=== PATIENT | male | born 2000 | race Caucasian/White ===

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

== ENCOUNTER 2021-02-22 16:17 | Emergency (ER) | payer OTHER, MEDICAID, SELFPAY ==
[2019-08-17 05:01] VITALS: BMI 23.8
[2021-02-22 16:30] VITALS: BP 141/69; PULSE 65; RESP 16; TEMP 36.6; O2SAT 97; BMI 14.6
[2021-02-22 17:17] LABS: COVID19 -Nasal RAPID POSITIVE (Negative)
--- NOTE | 2021-02-22 18:22 | ED.URI ---
HPI - URI/Sore Throat <Shayne Velez PA-C - Last Filed: 02/22/21 18:25> General Chief Complaint: Fever Stated Complaint: covid test, symptoms Time Seen by Provider: 02/22/21 17:42 Source: patient Mode of arrival: Ambulatory Limitations: no limitations History of Present Illness HPI Narrative: Keegan presents today with chief complaint of sore throat, mild muscle aches fatigue that started 3 days ago. He reports that his was diagnosed with COVID 4 days ago. His symptoms have largely resolved at this time. He denies any significant fever, chest pain, shortness of breath, abdominal pain, nausea, vomiting or any other acute concerns or complaints. He is otherwise healthy and has no known significant past medical problems. Related Data Home Medications Medication Instructions Recorded Confirmed No Known Home Medications 08/17/19 08/17/19 Previous Rx's Medication Instructions Recorded oxycodone 5 mg capsule 5 mg PO Q6H PRN #20 cap 08/17/19 oxycodone-acetaminophen 5 mg-325 1 tab PO Q6H PRN #14 tab 08/23/19 mg tablet (Percocet) Allergies Allergy/AdvReac Type Severity Reaction Status Date / Time No Known Drug Allergies Allergy Verified 08/17/19 18:30 Review of Systems <Shayne Velez PA-C - Last Filed: 02/22/21 18:25> Review of Systems Narrative: As per HPI Patient History <Shayne Velez PA-C - Last Filed: 02/22/21 18:25> Social History household members: significant other and friend(s) Smoking Status: Never smoker alcohol intake: current Smoking Status: Never smoker alcohol intake frequency: a few times a week Alcohol type: beer Substance Use Type: marijuana Exam <Shayne Velez PA-C - Last Filed: 02/22/21 18:25> Narrative Exam Narrative: Exam Narrative: Const General: cooperative, healthy appearing, comfortable, no acute distress, well developed and well groomed Nutritional Appearance: average body habitus Orientation: alert and oriented x3 HENMT Head: normal to inspection and atraumatic Ears: hearing grossly normal bilaterally Nose: external nose normal and nares normal Face and sinus: normal facial exam Neck Neck: normal visual inspection and supple Resp Effort & Inspection: normal respiratory effort, able to speak in complete sentences, no audible wheezes, not labored, no nasal flaring and no respiratory distress Neuro General: alert, oriented x3, gait normal, tone normal and moves all extremities Cognition: normal cognition Speech: speech normal Gait: normal gait Psych Appearance: grossly normal and well kempt Mental Status: mental status grossly normal Speech and Movement: speech and movement normal Mood: congruent mood Affect: normal affect Initial Vital Signs Initial Vital Signs: Vital Signs Temperature 98 F 02/22/21 16:30 Pulse Rate 65 02/22/21 16:30 Respiratory Rate 16 02/22/21 16:30 Blood Pressure 141/69 H 02/22/21 16:30 Pulse Oximetry 97 02/22/21 16:30 <DO Inder Salvador Last Filed: 02/23/21 00:11> Initial Vital Signs Initial Vital Signs: Vital Signs Temperature 98 F 02/22/21 16:30 Pulse Rate 65 02/22/21 16:30 Respiratory Rate 16 02/22/21 16:30 Blood Pressure 141/69 H 02/22/21 16:30 Pulse Oximetry 97 02/22/21 16:30 Course <Shayne Velez PA-C - Last Filed: 02/22/21 18:25> Orders Ordered: ED Orders 02/22/21 16:55 COVID19 -Nasal swab/Pre-Proc Stat Vital Signs Vital signs: Vital Signs - 8 hr 02/22/21 16:30 02/22/21 18:41 Temperature 98 F 98.1 F Pulse Rate 65 57 L Respiratory Rate 16 16 Blood Pressure 141/69 H 118/79 Pulse Oximetry 97 99 <DO Inder Salvador Last Filed: 02/23/21 00:11> Orders Ordered: ED Orders 02/22/21 16:55 COVID19 -Nasal swab/Pre-Proc Stat Vital Signs Vital signs: Vital Signs - 8 hr 02/22/21 16:30 02/22/21 18:41 Temperature 98 F 98.1 F Pulse Rate 65 57 L Respiratory Rate 16 16 Blood Pressure 141/69 H 118/79 Pulse Oximetry 97 99 MDM - URI/Sore Throat <EMI Diane Last Filed: 02/22/21 18:25> Lab Data Labs: Lab Results 02/22/21 Range/Units 16:55 SARS-CoV-2 (PCR) Positive H (Negative) MDM Narrative Medical decision making narrative: Patient test positive for COVID. He appears to have minimal symptoms at this time and his symptoms seem to be improving. Recommend continued symptomatic management and home isolation. Return precautions discussed. Patient verbalizes understanding and agrees to plan and has no further concerns at this time. Thank you A [id number] system was used with the dictation of this note. Please disregard any spelling or grammatical errors. <Renee Rosales DO - Last Filed: 02/23/21 00:11> Lab Data Labs: Lab Results 02/22/21 Range/Units 16:55 SARS-CoV-2 (PCR) Positive H (Negative) Discharge Plan Departure Patient Disposition: Home Clinical Impression: COVID-19 Activity Restrictions/Additional Instructions: It was nice to meet you this afternoon. Please continue to use [id number] therapies as needed for symptomatic management. Return if you experience any significant worsening symptoms. Thank you Shayne Velez PA-C Prescriptions: No Action No Known Home Medications RF: 0 oxycodone 5 mg capsule 5 mg PO Q6H PRN (Reason: pain) Qty: 20 RF: 0 oxycodone-acetaminophen [Percocet] 5-325 mg tablet 1 tab PO Q6H PRN (Reason: pain) Qty: 14 RF: 0 Referrals: Jj Mitchell MD [Primary Care Provider] - <Renee Rosales DO - Last Filed: 02/23/21 00:11> Sign Out Provider Sign Out Attestation: I was immediately available in the department for consultation. Documentation has been reviewed. I agree with assessment and plan.
[2021-02-22 18:41] VITALS: BP 118/79; PULSE 57; RESP 16; TEMP 36.7; O2SAT 99
== END 2021-02-22 18:42 | disposition home or self-care (01) ==
PROVIDERS: Emergency Medicine; Emergency Provider Physician Assistant; Family Provider Family Medicine; PCP Family Medicine
DX: U07.1 COVID-19 (principal)
CPT/HCPCS: 87635; 99281; 99282; C9803

== ENCOUNTER 2022-02-26 21:08 | Emergency (ER) | payer OTHER, MEDICAID, SELFPAY ==
[2019-08-17 05:01] VITALS: BMI 23.8
[2022-02-26 21:33] VITALS: BP 116/57; PULSE 69; RESP 17; TEMP 36.7; O2SAT 98; BMI 23.7
== END 2022-02-26 21:44 | disposition left against medical advice (07) ==
PROVIDERS: Emergency Provider Emergency Medicine; Family Provider Family Medicine; PCP Family Medicine
CPT/HCPCS: 99281

== ENCOUNTER 2022-08-22 03:12 | Emergency (ER) | payer OTHER, MEDICAID, SELFPAY ==
[2022-04-06 12:44] VITALS: BMI 23.8
[2022-08-22 03:19] VITALS: BP 123/73; PULSE 97; RESP 20; TEMP 37.6; O2SAT 97; BMI 22.5
[2022-08-22] MEDS: ONDANSETRON 4 MG ODT SL (03:30)
[2022-08-22 04:14] LABS: Influenza A - CEPHEID Flu A NEGATIVE (NEGATIVE); Influenza B - CEPHEID Flu B NEGATIVE (NEGATIVE); Respiratory Syncytial Virus Negative (Negative)
[2022-08-22 04:25] LABS: COVID-19 CEPHEID 4-PLEX PCR Negative (Negative)
--- NOTE | 2022-08-22 04:55 | ED.NAVMDI ---
HPI - Nausea/Vomiting/Diarrhea General Chief complaint: Nausea/Vomiting/Diarrhea Stated complaint: cant keep anything down, possible food poisoning Time Seen by Provider: 08/22/22 04:03 Source: patient Mode of arrival: Ambulatory Limitations: no limitations History of Present Illness HPI Narrative: Patient is a 22-year-old male who is here for evaluation of approximately 6 hours of nausea vomiting and diarrhea. No one else in the family is having any symptoms. He is having some abdominal tenderness but this is related to the vomiting and the diarrhea. No recent travel. No recent antibiotics. Has not tried anything for his symptoms prior to arrival. Related Data Home Medications Medication Instructions Recorded Confirmed No Known Home Medications 08/17/19 08/17/19 Previous Rx's Medication Instructions Recorded oxycodone 5 mg capsule 5 mg PO Q6H PRN pain #20 caps 08/17/19 oxycodone-acetaminophen 5 mg-325 1 tab PO Q6H PRN pain #14 tabs 08/23/19 mg tablet (Percocet) Allergies Allergy/AdvReac Type Severity Reaction Status Date / Time No Known Drug Allergies Allergy Verified 08/22/22 03:30 Review of Systems Constitutional Constitutional: Reports system reviewed and no additional complaints, except as documented Gastrointestinal Gastrointestinal: Reports system reviewed and no additional complaints, except as documented Integumentary/Breasts Skin/Breast: Reports system reviewed and no additional complaints, except as documented Patient History Social History household members: significant other and friend(s) Smoking Status: Never smoker alcohol intake: current Smoking Status: Never smoker alcohol intake frequency: a few times a week Alcohol type: beer Substance Use Type: marijuana Exam Initial Vital Signs Initial Vital Signs: Vital Signs Temperature 99.7 F H 08/22/22 03:19 Pulse Rate 97 H 08/22/22 03:19 Respiratory Rate 20 08/22/22 03:19 Blood Pressure 123/73 08/22/22 03:19 Pulse Oximetry 97 08/22/22 03:19 Oxygen Delivery Method 08/22/22 03:19 Resp Effort & Inspection: normal respiratory effort Auscultation: clear to auscultation bilaterally Cardio Rate: regular rate Rhythm: regular rhythm GI Inspection: normal to inspection Palpation: soft, No firm and No guarding Skin General: no rashes or lesions noted Course Orders Ordered: ED Orders 08/22/22 03:28 Covid-19 + FLU A/B + RSV - PCR Stat Ondansetron HCl (Ondansetron 4 Mg/2 Ml Inj) 4 mg IV NOW PRN PRN Reason: Nausea And Vomiting Ondansetron HCl (Ondansetron 4 Mg Odt) 4 mg SL NOW PRN PRN Reason: Nausea And Vomiting Last Admin: 08/22/22 03:30 Dose: 4 mg Documented By: OW Vital Signs Vital signs: Vital Signs - 8 hr 08/22/22 03:19 Temperature 99.7 F H Pulse Rate 97 H Respiratory Rate 20 Blood Pressure 123/73 Pulse Oximetry 97 Oxygen Delivery Method Room Air MDM - Nausea/Vomiting/Diarrhea Lab Data Attestation: I reviewed the patient's lab results. Labs: Lab Results 08/22/22 Range/Units 03:28 SARS-CoV-2 (PCR) Negative (Negative) Influenza A (RT-PCR) Flu a negative (NEGATIVE) Influenza B (RT-PCR) Flu b negative (NEGATIVE) RSV (PCR) Negative (Negative) MDM Narrative Medical decision making narrative: Well-appearing, vital signs unremarkable, benign exam, after Zofran patient was able to tolerate oral intake. Has not vomited nor had any loose bowel movements here in the ER. Given his presentation in his exam and his improvement of symptoms we will hold on any labs or radiologic studies for now. Will send home with prescription for Zofran. He was given return precautions. He expressed understanding and agreement. Discharge Plan Departure Patient Disposition: Home Clinical Impression: Nausea vomiting and diarrhea Instructions: Diarrhea, Nausea and Vomiting-Adult Activity Restrictions/Additional Instructions: I recommend that he is the nausea medication as directed. Be sure that your increasing your fluid intake by drinking small amounts over longer periods of time. I suspect that your symptoms will improve within the next several hours or day. Return to the emergency department for new or worsening symptoms. Prescriptions: No Action No Known Home Medications oxycodone 5 mg capsule 5 mg PO Q6H PRN (Reason: pain) Qty: 20 0RF oxycodone-acetaminophen [Percocet] 5-325 mg tablet 1 tab PO Q6H PRN (Reason: pain) Qty: 14 0RF Referrals: Jj Mitchell MD [Primary Care Provider] - Stand Alone Forms: Patient Portal/API
[2022-08-22] MEDS: ONDANSETRON 4 MG ODT PREPACK 1 BOTTLE MISC (06:16)
[2022-08-22 06:20] VITALS: BP 125/74; PULSE 86; RESP 20; TEMP 36.6; O2SAT 100
== END 2022-08-22 06:25 | disposition home or self-care (01) ==
PROVIDERS: Emergency Provider Emergency Medicine; Family Provider Family Medicine; PCP Family Medicine
DX: R11.2 Nausea with vomiting, unspecified (principal); R19.7 Diarrhea, unspecified; Z20.822 Contact with and (suspected) exposure to COVID-19
CPT/HCPCS: 0241U; 99283

== ENCOUNTER 2024-01-21 10:07 | Emergency (ER) | payer SELFPAY ==
[2022-04-06 12:44] VITALS: BMI 23.8
[2024-01-21 10:36] VITALS: BP 126/59; PULSE 66; RESP 15; TEMP 36.7; O2SAT 97; BMI 24.9
--- NOTE | 2024-01-21 10:42 | DI.RAD.S_ITS ---
PROCEDURE: XR CHEST 1V INDICATIONS: chest pain TECHNIQUE: One view of the chest was acquired. COMPARISON: None. FINDINGS: Surgical changes and devices: None. Lungs and pleura: Lungs are clear. No pleural effusions or pneumothorax. Mediastinum: Mediastinal contours appear normal. Heart size is normal. Bones and chest wall: No suspicious bony lesions. Overlying soft tissues appear unremarkable. IMPRESSION: No acute cardiopulmonary abnormality is seen. Dictated by: Jyoti Harrell MD, PhD on 01/21/2024 at 11:38 Approved by: Jyoti Harrell MD, PhD on 01/21/2024 at 11:38
--- NOTE | 2024-01-21 10:49 | EKG_ITS ---
[place] [id number] [address] [place] [id number] Test Date: 2024-01-21 Pat Name: Keegan Gómez Department: [facility] Room: Gender: Male [employer]: LUIS ALFREDO : 2000 Requested By: Order Number: [id number] Reading MD: Fer Melara Measurements Intervals [place] Rate: 52 P: 52 MN: 148 QRS: -3 QRSD: 108 T: 59 QT: 412 QTc: 383 Interpretive Statements Sinus bradycardia with sinus arrhythmia Incomplete right bundle branch block Electronically Signed On 01-23-2024 7:36:32 PDT by Fer Melara
[2024-01-21 11:00] LABS: Add Manual Diff / Slide Review NO; Basophils Absolute Auto 0 /uL (0-100); Basophils Percent Auto 0.3 % (0-2); Eosinophils Absolute Auto 200 /uL (0-450); Eosinophils Percent Auto 3.6 % (2-4); Hematocrit 41.4 % (41-53); Hemoglobin 13.9 g/dL (13.5-17.5); Lymphocytes Absolute Auto 1700 /uL (1100-4500); Lymphocytes Percent Auto 40.4 % (25-40); Mean Corpuscular HGB Conc 33.6 % (30-36); Mean Corpuscular Volume 89.3 fL (80-100); Monocytes Absolute Auto 400 /uL (0-900); Neutrophils Absolute Auto 2000 /uL (1500-7000); Neutrophils Percent Auto 46.7 % (50-75); Platelet Count 173 X10^3/uL (150-400); Red Blood Cell Count 4.63 X10^6/uL (4.5-5.9); Red Cell Distribution Width 12.9 % (11.6-14.8); White Blood Cell Count 4.3 X10^3/uL (4.5-11.0)
[2024-01-21 11:12] LABS: INR 1.1 (0.9-1.3); Prothrombin Time 12.3 SECONDS (9.4-12.5)
[2024-01-21 11:15] LABS: PTT Partial Thromboplastin Tim 38 SECONDS (25.1-36.5)
[2024-01-21 11:16] LABS: Alanine Aminotransferase 18 IU/L (<50); Albumin 4.5 g/dL (3.5-5.0); Albumin Globulin Ratio 1.6 (1.0-2.8); Alkaline Phosphatase 64 U/L (38-126); Aspartate Aminotransferase 22 IU/L (17-59); BUN Creatinine Ratio 14.1 (6-22); Bilirubin Total 0.7 mg/dL (0.2-1.3); Blood Urea Nitrogen 14 mg/dL (9-20); Calcium 8.9 mg/dL (8.4-10.2); Carbon Dioxide 28 mmol/L (22-32); Chloride 104 mmol/L (98-107); Creatine Kinase 87 U/L (55-170); Estimated Glomerular Filt Rate > 60 mL/min (>60); Globulin 2.8 g/dL (1.7-4.1); Glucose 107 mg/dL (70-100); HEMOLYSIS < 15 (0-50); Lipase 51 U/L (23-300); Magnesium 1.9 mg/dL (1.6-2.3); Potassium 4.2 mmol/L (3.4-5.1); Sodium 140 mmol/L (137-145); Total Protein 7.3 g/dL (6.3-8.2)
[2024-01-21 11:28] LABS: NT-proBNP (BNP-Adult 18+) 65 pg/mL (<125); Troponin I < 0.012 ng/mL (0.01-0.034)
--- NOTE | 2024-01-21 12:09 | ED_ITS ---
HPI - Syncope <Sylvia Salas PA-C - Last Filed: 01/21/24 19:10> General Chief Complaint: Syncope Stated Complaint: blacked out poss seizure Time Seen by Provider: 01/21/24 11:28 Source: patient Mode of arrival: Ambulatory Limitations: no limitations History of Present Illness HPI narrative: 23-year-old male with no reported past medical history presents to the ED status post a syncopal episode that occurred early this morning. Patient states that he smoked marijuana like he usually does daily an hour before he went to bed in their bedroom at about 11:00 p.m. last night. Patient states that he awoke at about 4:00 a.m. on a pile of clothes in the bedroom, he felt nauseous and stiff all over, however managed to get back into bed and fell asleep very quickly. This morning, patient states he slept through his alarm which was set to go to work at 6:00 a.m. he slept in until 9:00 a.m. when his woke him up reminding him that he was late for work. Patient reports feeling tired, achy all over at the time. Patient reports that his wanted him to come in today since she is concerned that he might be experiencing seizures. Patient's father has recently been diagnosed with a seizure disorder and there is some concern about a genetic component to this. Patient states that this is the 1st time he remembers but his remembers 2 other similar episodes with the patient might have syncopized or seized. Patient denies fever, chills, rhinorrhea, cough, sore throat, chest pain, shortness of breath, vomiting, abdominal pain, dysuria, lightheadedness. Related Data Home Medications Medication Instructions Recorded Confirmed No Known Home Medications 08/17/19 07/08/23 Previous Rx's Medication Instructions Recorded oxycodone 5 mg capsule 5 mg PO Q6H PRN pain #20 caps 08/17/19 oxycodone-acetaminophen 5 mg-325 1 tab PO Q6H PRN pain #14 tabs 08/23/19 mg tablet (Percocet) Allergies Allergy/AdvReac Type Severity Reaction Status Date / Time No Known Drug Allergies Allergy Verified 01/21/24 10:36 Review of Systems <Sylvia Salas PA-C - Last Filed: 01/21/24 19:10> Constitutional Constitutional: Reports body ache(s), Denies chills, Reports fatigue, Denies fever(s), Denies frequent falls, Denies lethargy and Denies weakness Eyes Eyes: Denies change in vision, Denies eye discharge, Denies irritation and Denies loss of vision ENT Ears, Nose, Mouth, and Throat: Denies change in voice, Denies dizziness, Denies neck pain, Denies sore throat and Denies throat swelling Cardiovascular Cardiovascular: Denies chest pain, Reports syncope, Denies irregular heart rhythm, Denies lightheadedness, Denies palpitations, Denies dyspnea, Denies dyspnea on exertion and Denies orthopnea Respiratory Respiratory: Denies cough, Denies dyspnea, Denies dyspnea on exertion and Denies wheezing Gastrointestinal Gastrointestinal: Denies abdominal pain, Denies change in bowel habits, Denies diarrhea, Reports nausea and Denies vomiting Musculoskeletal Musculoskeletal: Denies neck pain and Denies numbness Integumentary/Breasts Skin/Breast: Denies pruritus, Denies erythema, Denies rash and Denies wounds Neurologic Neurologic: Denies behavioral changes, Denies confusion, Denies dizziness, Reports syncope, Denies frequent falls, Denies loss of vision, Denies numbness and Denies weakness Psychiatric Psychiatric: Denies anxiety, Denies behavioral changes, Denies confusion, Denies depression, Denies homicidal ideation and Denies suicidal ideation Endocrine Endocrine: Reports fatigue, Denies flushing and Denies palpitations Hematologic/Lymphatic Hematologic/Lymphatic: Denies easy bruising Allergic/Immunologic Allergic/Immunologic: Denies urticaria, Denies throat swelling and Denies wheezing Patient History <Sylvia Salas PA-C - Last Filed: 01/21/24 19:10> Surgical History Anesthesia History of elbow surgery (~08/2019) Family History Father Heart aneurysm Depression History of bipolar disorder Seizures History of heart disease Mental health problem Sister Diabetes mellitus Mental health problem Social History household members: significant other and friend(s) Smoking Status: Never smoker alcohol intake: current Smoking Status: Never smoker alcohol intake frequency: 0-2 drinks per day Alcohol type: beer Substance Use Type: marijuana Exam <Sylvia Salas PA-C - Last Filed: 01/21/24 19:10> Narrative Exam Narrative: Const General:?cooperative, healthy appearing and comfortable HENME Head:?normal to inspection Ears:?hearing grossly normal bilaterally Nose:?external nose normal Face and sinus:?normal facial exam and sinuses nontender Mouth:?oral mucosae normal Throat:?posterior oropharynx normal Eyes General:?appearance normal, both eyes and all related structures Neck Neck:?normal visual inspection and no lymphadenopathy noted Resp Effort & Inspection:?normal respiratory effort Auscultation:?clear to auscultation bilaterally Cardio Rate:?regular rate Rhythm:?regular rhythm Neuro General:?patient alert, patient awake and patient oriented x3; PERLLA; CN 1-12 intact bilaterally; gait normal Initial Vital Signs Initial Vital Signs: Vital Signs Temperature 98.0 F 01/21/24 10:36 Pulse Rate 66 01/21/24 10:36 Respiratory Rate 15 01/21/24 10:36 Blood Pressure 126/59 L 01/21/24 10:36 Pulse Oximetry 97 01/21/24 10:36 Oxygen Delivery Method Room Air 01/21/24 10:36 <Jordyn Dietz MD - Last Filed: 01/22/24 06:51> Initial Vital Signs Initial Vital Signs: Vital Signs Temperature 98.0 F 01/21/24 10:36 Pulse Rate 66 01/21/24 10:36 Respiratory Rate 15 01/21/24 10:36 Blood Pressure 126/59 L 01/21/24 10:36 Pulse Oximetry 97 01/21/24 10:36 Oxygen Delivery Method Room Air 01/21/24 10:36 Course <Sylvia Salas PA-C - Last Filed: 01/21/24 19:10> Orders Ordered: ED Orders 01/21/24 10:42 XR chest 1V Stat EKG-12 Lead Stat 01/21/24 10:53 Complete Blood Count AUTO DIFF Stat Comprehensive Metabolic Panel Stat Ethanol (ETOH) Stat Lipase Stat Magnesium Stat NT-proBNP (BNP-Adult 18+) Stat PTT Partial Thromboplastin Wade Stat Prolactin Stat Prothrombin Time INR Stat Troponin & CK Cardiac Panel Stat 01/21/24 12:24 Urinalysis and Microscopic Stat urine tox [Urine Drug Screen, Rapid] Stat 01/21/24 12:26 CT head/brain wo con Stat Vital Signs Vital signs: Vital Signs - 8 hr 01/21/24 13:17 01/21/24 14:11 Temperature 98.0 F Pulse Rate 60 61 Respiratory Rate 20 16 Blood Pressure 116/74 119/61 Pulse Oximetry 100 100 Oxygen Delivery Method Room Air Room Air <Jordyn Dietz MD - Last Filed: 01/22/24 06:51> Orders Ordered: ED Orders 01/21/24 10:42 XR chest 1V Stat EKG-12 Lead Stat 01/21/24 10:53 Complete Blood Count AUTO DIFF Stat Comprehensive Metabolic Panel Stat Ethanol (ETOH) Stat Lipase Stat Magnesium Stat NT-proBNP (BNP-Adult 18+) Stat PTT Partial Thromboplastin Wade Stat Prolactin Stat Prothrombin Time INR Stat Troponin & CK Cardiac Panel Stat 01/21/24 12:24 Urinalysis and Microscopic Stat urine tox [Urine Drug Screen, Rapid] Stat 01/21/24 12:26 CT head/brain wo con Stat Vital Signs Vital signs: Vital Signs - 8 hr 01/21/24 13:17 01/21/24 14:11 Temperature 98.0 F Pulse Rate 60 61 Respiratory Rate 20 16 Blood Pressure 116/74 119/61 Pulse Oximetry 100 100 Oxygen Delivery Method Room Air Room Air MDM - Syncope <Sylvia Salas PA-C - Last Filed: 01/21/24 19:10> Lab Data 01/21/24 10:53 01/21/24 10:53 Labs: Lab Results 01/21/24 01/21/24 01/21/24 Range/Units 10:53 12:24 12:24 WBC 4.3 L (4.5-11.0) X10^3/uL RBC 4.63 (4.5-5.9) X10^6/uL Hgb 13.9 (13.5-17.5) g/dL Hct 41.4 (41-53) % MCV 89.3 (80-100) fL MCH 30.0 (26-34) PG MCHC 33.6 (30-36) % RDW 12.9 (11.6-14.8) % Plt Count 173 (150-400) X10^3/uL Neut % (Auto) 46.7 L (50-75) % Lymph % (Auto) 40.4 H (25-40) % Tyler % (Auto) 9.0 (3-14) % Eos % (Auto) 3.6 (2-4) % Baso % (Auto) 0.3 (0-2) % Neut # (Auto) 2000 (0483-3261) /uL Lymph # (Auto) 1700 (1451-6308) /uL Tyler # (Auto) 400 (0-900) /uL Eos # (Auto) 200 (0-450) /uL Baso # (Auto) 0 (0-100) /uL PT 12.3 (9.4-12.5) SECONDS INR 1.1 (0.9-1.3) APTT 38 H (25.1-36.5) SECONDS Sodium 140 (137-145) mmol/L Potassium 4.2 (3.4-5.1) mmol/L Chloride 104 (98-107) mmol/L Carbon Dioxide 28 (22-32) mmol/L BUN 14 (9-20) mg/dL Creatinine 0.99 (0.66-1.25) mg/dL Estimated GFR > 60 (>60) mL/min BUN/Creatinine Ratio 14.1 (6-22) Glucose 107 H (70-100) mg/dL Calcium 8.9 (8.4-10.2) mg/dL Magnesium 1.9 (1.6-2.3) mg/dL Total Bilirubin 0.7 (0.2-1.3) mg/dL AST 22 (17-59) IU/L ALT 18 (<50) IU/L Alkaline Phosphatase 64 (38-126) U/L Total Creatine Kinase 87 (55-170) U/L Troponin I < 0.012 (0.01-0.034) ng/mL NT-Pro-B Natriuret Pep 65 (<125) pg/mL Total Protein 7.3 (6.3-8.2) g/dL Albumin 4.5 (3.5-5.0) g/dL Globulin 2.8 (1.7-4.1) g/dL Albumin/Globulin Ratio 1.6 (1.0-2.8) Lipase 51 (23-300) U/L Prolactin 16.9 (3.7-17.9) ng/mL Urine Color Yellow Urine Appearance Clear Urine pH 7.5 Normal (4.5-8.0) Ur Specific [place] 1.015 (1.000-1.035) Urine Protein Negative (Negative) Urine Glucose (UA) Negative (Negative) g/dL Urine Ketones Negative (NEGATIVE) Urine Occult Blood Negative (Negative) Urine Nitrate Negative (Negative) Urine Bilirubin Negative (NEGATIVE) Urine Urobilinogen 1.0 (0.2) E.U./dL Ur Leukocyte Esterase Negative (NEGATIVE) Urine RBC None seen (0-5/HPF) Urine WBC None seen (0-5/HPF) Ur Squamous Epith Cells 0-1 /hpf (0-5/HPF) Amorphous Sediment 2+ Urine Bacteria None seen (None) Ur Culture Indicated? Cult not indicated Vol Urine Centrifuged 10ml (spun) U Opiates 300ng/mL cut Negative (Negative) Ur Oxycodone Screen Negative (Negative) Urine Methadone Screen Negative (Negative) Ur Barbiturates Screen Negative (Negative) U Tricyclic Antidepress Negative (Negative) Ur Phencyclidine Scrn Negative (Negative) Ur Amphetamines Screen Negative (Negative) U Methamphetamines Scrn Negative (Negative) Ur MDMA Scrn (Ecstasy) Negative (Negative) U Benzodiazepines Scrn Negative (Negative) Urine Cocaine Screen Negative (Negative) U Marijuana (THC) Screen Positive H (Negative) Urine Specific [place] Normal (Normal) Ethyl Alcohol < 10 ( - 10) mg/dL Ur Creatinine Normal (Normal) Point of Care Testing Glucose POC 130 MDM Narrative Medical decision making narrative: 23-year-old male with no reported past medical history presents to the ED status post a syncopal episode that occurred early this morning. Concern for syncope versus seizure versus intoxication versus alcohol withdrawal versus medication withdrawal versus UTI versus other. Will obtain EKG, chest x-ray, labs, troponin, BNP, lactate, prolactin, CT head without contrast, urine tox, UA. Will reassess. Patient's workup was unremarkable. EKG with sinus bradycardia with sinus arrhythmia. Labs within normal limits. UA without UTI. Troponin, BNP within normal limits. Negative prolactin. CT head without acute findings. Urine tox positive for marijuana. Discussed findings with patient. Recommend follow-up with neurology as soon as possible to evaluate for seizures versus other. Recommend cessation of marijuana. ED return precautions discussed with patient. Patient verbalized understanding. Medical records reviewed: Yes <Jordyn Dietz MD - Last Filed: 01/22/24 06:51> Lab Data Labs: Lab Results 01/21/24 01/21/24 01/21/24 Range/Units 10:53 12:24 12:24 WBC 4.3 L (4.5-11.0) X10^3/uL RBC 4.63 (4.5-5.9) X10^6/uL Hgb 13.9 (13.5-17.5) g/dL Hct 41.4 (41-53) % MCV 89.3 (80-100) fL MCH 30.0 (26-34) PG MCHC 33.6 (30-36) % RDW 12.9 (11.6-14.8) % Plt Count 173 (150-400) X10^3/uL Neut % (Auto) 46.7 L (50-75) % Lymph % (Auto) 40.4 H (25-40) % Tyler % (Auto) 9.0 (3-14) % Eos % (Auto) 3.6 (2-4) % Baso % (Auto) 0.3 (0-2) % Neut # (Auto) 2000 (7372-8609) /uL Lymph # (Auto) 1700 (2000-9328) /uL Tyler # (Auto) 400 (0-900) /uL Eos # (Auto) 200 (0-450) /uL Baso # (Auto) 0 (0-100) /uL PT 12.3 (9.4-12.5) SECONDS INR 1.1 (0.9-1.3) APTT 38 H (25.1-36.5) SECONDS Sodium 140 (137-145) mmol/L Potassium 4.2 (3.4-5.1) mmol/L Chloride 104 (98-107) mmol/L Carbon Dioxide 28 (22-32) mmol/L BUN 14 (9-20) mg/dL Creatinine 0.99 (0.66-1.25) mg/dL Estimated GFR > 60 (>60) mL/min BUN/Creatinine Ratio 14.1 (6-22) Glucose 107 H (70-100) mg/dL Calcium 8.9 (8.4-10.2) mg/dL Magnesium 1.9 (1.6-2.3) mg/dL Total Bilirubin 0.7 (0.2-1.3) mg/dL AST 22 (17-59) IU/L ALT 18 (<50) IU/L Alkaline Phosphatase 64 (38-126) U/L Total Creatine Kinase 87 (55-170) U/L Troponin I < 0.012 (0.01-0.034) ng/mL NT-Pro-B Natriuret Pep 65 (<125) pg/mL Total Protein 7.3 (6.3-8.2) g/dL Albumin 4.5 (3.5-5.0) g/dL Globulin 2.8 (1.7-4.1) g/dL Albumin/Globulin Ratio 1.6 (1.0-2.8) Lipase 51 (23-300) U/L Prolactin 16.9 (3.7-17.9) ng/mL Urine Color Yellow Urine Appearance Clear Urine pH 7.5 Normal (4.5-8.0) Ur Specific [place] 1.015 (1.000-1.035) Urine Protein Negative (Negative) Urine Glucose (UA) Negative (Negative) g/dL Urine Ketones Negative (NEGATIVE) Urine Occult Blood Negative (Negative) Urine Nitrate Negative (Negative) Urine Bilirubin Negative (NEGATIVE) Urine Urobilinogen 1.0 (0.2) E.U./dL Ur Leukocyte Esterase Negative (NEGATIVE) Urine RBC None seen (0-5/HPF) Urine WBC None seen (0-5/HPF) Ur Squamous Epith Cells 0-1 /hpf (0-5/HPF) Amorphous Sediment 2+ Urine Bacteria None seen (None) Ur Culture Indicated? Cult not indicated Vol Urine Centrifuged 10ml (spun) U Opiates 300ng/mL cut Negative (Negative) Ur Oxycodone Screen Negative (Negative) Urine Methadone Screen Negative (Negative) Ur Barbiturates Screen Negative (Negative) U Tricyclic Antidepress Negative (Negative) Ur Phencyclidine Scrn Negative (Negative) Ur Amphetamines Screen Negative (Negative) U Methamphetamines Scrn Negative (Negative) Ur MDMA Scrn (Ecstasy) Negative (Negative) U Benzodiazepines Scrn Negative (Negative) Urine Cocaine Screen Negative (Negative) U Marijuana (THC) Screen Positive H (Negative) Urine Specific [place] Normal (Normal) Ethyl Alcohol < 10 ( - 10) mg/dL Ur Creatinine Normal (Normal) Point of Care Testing Glucose POC 130 Discharge Plan Departure Patient Disposition: Home Clinical Impression: Syncope Qualifiers: Syncope type: unspecified Qualified Code(s): R55 - Syncope and collapse Instructions: DI for Syncope in Adults (Fainting) Activity Restrictions/Additional Instructions: You were evaluated in the ED today for an episode of passing out. Your EKG, chest x-ray, labs, CT scan of the brain were normal. It is unclear what the cause of your passing out was. It is also possible that you had a seizure. Please follow-up with your PCP as soon as possible for a referral to Neurology for further evaluation. In the meanwhile, it is recommended that you cut out the marijuana in case that is causing these episodes. Return to the ED if you have worsening symptoms. Prescriptions: No Action No Known Home Medications oxycodone 5 mg capsule 5 mg PO Q6H PRN (Reason: pain) Qty: 20 0RF oxycodone-acetaminophen [Percocet] 5-325 mg tablet 1 tab PO Q6H PRN (Reason: pain) Qty: 14 0RF Referrals: Jj Mitchell MD [Primary Care Provider] - Stand Alone Forms: Patient Portal/API ED Sign-out <Jordyn Dietz MD - Last Filed: 01/22/24 06:51> Cosign ED Attending Cosignature Attestation: I did not see this patient. I was available all times for consultation.
[2024-01-21 12:14] LABS: Ethanol (ETOH) < 10 mg/dL
--- NOTE | 2024-01-21 12:26 | DI.CT.S_ITS ---
PROCEDURE: CT HEAD/BRAIN WO CON INDICATIONS: ?seizure TECHNIQUE: Noncontrast 4.5 mm thick angled axial sections acquired from the foramen magnum to the vertex, with coronal and sagittal reformats. For radiation dose reduction, the following was used: automated exposure control, adjustment of mA and/or kV according to patient size. COMPARISON: [facility], CR, XR CHEST 1V, 01/21/2024, 11:07. FINDINGS: Image quality: Diagnostic. CSF spaces: Basal cisterns are patent. No extra-axial fluid collections. Ventricles are normal in size and shape. Brain: No midline shift. No intracranial masses or hemorrhage. Luna-white matter interface is normal. Skull and face: Calvarium and visualized facial bones are intact, without suspicious lesions. Sinuses: Visualized sinuses and mastoids are clear. IMPRESSION: No acute intracranial hemorrhage is seen. No acute intracranial pathology. To the limits of this noncontrast study, no findings of intracranial masses or mass effect can be seen. Dictated by: Minh Willard M.D. on 01/21/2024 at 12:47 Approved by: Minh Willard M.D. on 01/21/2024 at 12:47
[2024-01-21 12:36] LABS: Prolactin 16.9 ng/mL (3.7-17.9)
[2024-01-21 13:09] LABS: Appearance Urine UA CLEAR; Bilirubin Urine UA NEGATIVE (NEGATIVE); Color Urine UA YELLOW; Glucose Urine UA NEGATIVE (Negative); Ketones Urine UA NEGATIVE (NEGATIVE); Leukocyte Esterase Urine UA NEGATIVE (NEGATIVE); Nitrite Urine UA NEGATIVE (Negative); Occult Blood Urine UA NEGATIVE (Negative); Protein Urine UA NEGATIVE (Negative); Specific Gravity Urine UA 1.015 (1.000-1.035); pH Urine UA 7.5 (4.5-8.0)
[2024-01-21 13:17] VITALS: BP 116/74; PULSE 60; RESP 20; O2SAT 100
[2024-01-21 13:37] LABS: RBC Urine None Seen (0-5/HPF); Urine Volume 10mL (spun); WBC Urine None Seen (0-5/HPF)
[2024-01-21 13:38] LABS: Amorphous Sediment Urine 2+; Bacteria Urine None Seen; Culture Indicated Urine Cult Not Indicated; Squamous Epithelial Cell Urine 0-1 /HPF (0-5/HPF)
[2024-01-21 14:07] LABS: Ur Creatinine Normal (Normal); Ur Specific Gravity Normal (Normal); Urine Tetrahydrocannabinol Positive (Negative); Urine pH Normal (Normal)
[2024-01-21 14:08] LABS: UR Morphine/Opiate cutoff 300 Negative (Negative); Urine Amphetamines Negative (Negative); Urine Barbiturates Negative (Negative); Urine Benzodiazepines Negative (Negative); Urine Cocaine Negative (Negative); Urine MDMA Negative (Negative); Urine Methadone Negative (Negative); Urine Methamphetamines Negative (Negative); Urine Oxycodone Negative (Negative); Urine Phencyclidine Negative (Negative); Urine Tricyclic Antidepressant Negative (Negative)
[2024-01-21 14:11] VITALS: BP 119/61; PULSE 61; RESP 16; TEMP 36.7; O2SAT 100
== END 2024-01-21 14:47 | disposition home or self-care (01) ==
PROVIDERS: Emergency Medicine; Emergency Provider Student in an Organized Health Care Education/Training Program; Family Provider Family Medicine; PCP Family Medicine
DX: R55 Syncope and collapse (principal); F12.90 Cannabis use, unspecified, uncomplicated
CPT/HCPCS: 36415; 70450; 71045; 80053; 80305; 80320; 81001; 82550; 82962; 83690; 83735; 83880; 84146; 84484; 85025; 85610; 85730; 93005; 99282; 99284

== ENCOUNTER 2025-06-22 11:02 | Emergency (ER) | payer OTHER, SELFPAY ==
[2022-04-06 12:44] VITALS: BMI 23.8
--- OUTSIDE RECORDS SUMMARY | 2025-06-22 11:04 | XMS_ITS | Clinical Summary ---
Author Organization [facility] Address [address] [place] [phone] Phone [phone] Care Team Providers Care National Accounts Recruiter Name Role Phone Unavailable Primary Care Provider Unavailabl e Social History Tobacco Use Types Packs/Day Years Used Date Smoking Tobacco: Never Assessed Sex and Gender Information Value Date Recorded Sex Assigned at Not on file Legal Sex Male 7:28 AM PDT Gender Identity Not on file Sexual Orientation Not on file Last Filed Vital Signs Vital Sign Reading Time Taken Comments Blood Pressure 102/74 04/28/2019 10:37 AM PDT Pulse 84 04/28/2019 10:37 AM PDT Temperature 37.2 C (99 F) 04/28/2019 10:37 AM PDT Respiratory Rate - - Oxygen Saturation - - Inhaled Oxygen Concentration - - Weight 91.6 kg (202 lb) 04/28/2019 10:37 AM PDT Height 194.3 cm (6' 4.5) 01/16/2017 3:07 PM PDT Body Mass Index - - Plan of Treatment Health Maintenance Due Date Last Done Comments HIV Screening 2015 HPV Vaccines (2 - Male 3-dose series) 05/22/2017 04/24/2017 Hepatitis C Screening 2018 DTaP/Tdap/Td Vaccines (8 - Td or Tdap) 10/24/2021 10/25/2011, 10/25/2011, 10/25/2005, Additional history exists COVID-19 Vaccine ( - season) 2025 Influenza Vaccine (#1) 2025 04/24/2017 Zoster Vaccines (1 of 2) 2050 02/25/2006 RSV Vaccination aged 60+ and Patients (1 - 1-dose 75+ series) 2075 HIB Vaccines Completed 11/14/2001, 12/31, 2000, Additional history exists IPV Vaccines Completed 10/25/2005, 09/30, 11/14/2001, Additional history exists Hepatitis A Vaccines Aged Out No long er eligible based on patient's age to complete this topic Meningococcal Vaccine Aged Out No karina pavel eligible based on patient's age to complete this topic Pneumococcal Vaccine: Pediatrics (0 to 5 Years) and At-Risk Patients (19 to 50 Years) Aged Out No longer eligible based on patient's age to complete this topic Rotavirus Vaccines Aged Out No longer eligible based on patient's age to complete this topic
[2025-06-22 11:10] VITALS: BP 118/83; PULSE 69; RESP 18; TEMP 36.9; O2SAT 98; BMI 26.1
--- NOTE | 2025-06-22 11:24 | DI.RAD.S_ITS ---
PROCEDURE: XR ABDOMEN MIN 2V INDICATIONS: RUQ pain TECHNIQUE: 2 views of the abdomen were acquired. COMPARISON: None. FINDINGS: Surgical changes and devices: None. Bowel: No pneumoperitoneum. The bowel gas pattern is nonobstructive. Moderate fecal burden scattered throughout the colon. Soft tissues: No masses; visualized solid organ contours appear normal in size. No suspicious abdominal calcifications. Bones: No suspicious bony abnormalities. IMPRESSION: Non-obstructive bowel gas pattern. Moderate fecal burden seen throughout the colon. No acute radiographic abnormality seen. Dictated by: Jared Aguirre M.D. on 06/22/2025 at 12:20 Approved by: Jared Aguirre M.D. on 06/22/2025 at 12:21
--- NOTE | 2025-06-22 11:24 | DI.US.S_ITS ---
PROCEDURE: US ABDOMEN LIMITED INDICATIONS: RUQ pain TECHNIQUE: Real-time scanning was performed of the abdominal and retroperitoneal organs, with image documentation. COMPARISON: None. FINDINGS: Liver: Liver is normal in size and homogeneous in echotexture. Minimally increased hepatic echotexture. There is a subtle 0.8 x 0.8 x 0.8 cm hyperechoic oval lesion in the right hepatic lobe laterally. This is suspected to represent a small hemangioma. Main portal vein is patent with hepatopetal flow. Gallbladder: No gallstones. No wall thickening. No pericholecystic edema. Negative sonographic Calvert's sign. Biliary ducts: Intrahepatic bile ducts are non-dilated. Extrahepatic bile duct caliber measures 4 mm. Normal is 6-7 mm or less in diameter, or 10 mm or less post-cholecystectomy. Pancreas: Pancreas not visualized secondary to overlying bowel gas. Miscellaneous: No free abdominal fluid. IMPRESSION: Abdomen without acute sonographic abnormalities. Findings consistent with mild hepatic steatosis with suspected benign 0.8 cm right hepatic lobe hemangioma. No evidence for cholelithiasis or acute cholecystitis. Dictated by: Jared Aguirre M.D. on 06/22/2025 at 12:22 Approved by: Jared Aguirre M.D. on 06/22/2025 at 12:26
--- NOTE | 2025-06-22 11:26 | ED_ITS ---
HPI - Abdominal Pain <Sylvia Salas PA-C - Last Filed: 06/22/25 17:34> General Chief Complaint: Abdominal Pain Stated Complaint: abd px, more tired than usual Time Seen by Provider: 06/22/25 11:16 Source: patient Mode of arrival: Ambulatory History of Present Illness HPI narrative: 24-year-old male presents to the ED with 2 days of right upper quadrant/lower chest pain. Patient states that he was seeing stars when he tried to lift his little baby. Patient notes mild sore throat, and that his family has had some respiratory symptoms. No fever, chills, shortness of breath, nausea, vomiting, lightheadedness, dizziness, syncope. Last bowel movement was yesterday. Occasional alcohol use. Occasional vaping/smoking. Denies recreational drug use. No trauma, injury reported by the patient. He did say that he was working on the kitchen, however did not lift heavy weights. Related Data Home Medications ?Medication ?Instructions ?Recorded ?Confirmed No Known Home Medications 08/17/1902/21 Previous Rx's ?Medication ?Instructions ?Recorded oxycodone 5 mg capsule 5 mg PO Q6H PRN pain #20 cap s 08/17/19 oxycodone-acetaminophen 5 mg-325 1 tab PO Q6H PRN pain #14 tabs 08/23/19 mg tablet (Percocet) Allergies Allergy/AdvReac Type Severity Reaction Status Date / Time No Known Drug Allergies Allergy Verified 01/21/24 10:36 Review of Systems <Sylvia Salas PA-C - Last Filed: 06/22/25 17:34> Constitutional Constitutional: Denies chills, Denies fatigue, Denies fever(s), Denies frequent falls, Denies lethargy and Denies weakness Eyes Eyes: Denies change in vision, Denies eye discharge, Denies irritation and Denies loss of vision ENT Ears, Nose, Mouth, and Throat: Denies change in voice, Denies dizziness, Denies neck pain, Denies sore throat and Denies throat swelling Cardiovascular Cardiovascular: Reports chest pain (inspirational), Denies irregular heart rhythm, Denies lightheadedness, Denies palpitations, Denies dyspnea, Denies dyspnea on exertion and Denies orthopnea Respiratory Respiratory: Denies cough, Denies dyspnea, Denies dyspnea on exertion and Denies wheezing Gastrointestinal Gastrointestinal: Reports abdominal pain, Denies change in bowel habits, Denies diarrhea, Denies nausea and Denies vomiting Musculoskeletal Musculoskeletal: Denies neck pain and Denies numbness Integumentary/Breasts Skin/Breast: Denies pruritus, Denies erythema, Denies rash and Denies wounds Neurologic Neurologic: Denies behavioral changes, Denies confusion, Denies dizziness, Denies frequent falls, Denies loss of vision, Denies numbness and Denies weakness Psychiatric Psychiatric: Denies anxiety, Denies behavioral changes, Denies confusion, Denies depression, Denies homicidal ideation and Denies suicidal ideation Endocrine Endocrine: Denies fatigue, Denies flushing and Denies palpitations Hematologic/Lymphatic Hematologic/Lymphatic: Denies easy bruising Allergic/Immunologic Allergic/Immunologic: Denies urticaria, Denies throat swelling and Denies wheezing Patient History <Sylvia Salas PA-C - Last Filed: 06/22/25 17:34> Medical History Acne Depression Migraines Headache Surgical History Anesthesia History of elbow surgery (~08/2019) Family History Father Heart aneurysm Depression History of bipolar disorder Seizures History of heart disease Mental health problem Sister Diabetes mellitus Mental health problem Brother Mental health problem Brother Mental health problem Grandmother Cancer Diabetes mellitus Grandfather Cancer Grandmother Cancer Social History household members: significant other and friend(s) Smoking Status: Current some day smoker alcohol intake: current Smoking Status: Current some day smoker tobacco type: cigarettes and vaping alcohol intake frequency: 0-2 drinks per day Alcohol type: beer Exam <Sylvia Salas PA-C - Last Filed: 06/22/25 17:34> Narrative Exam Narrative: Const General:?cooperative, healthy appearing and comfortable [facility] Head:?normal to inspection Ears:?hearing grossly normal bilaterally Nose:?external nose normal Face and sinus:?normal facial exam and sinuses nontender Mouth:?oral mucosae normal Throat:?posterior oropharynx normal Eyes General:?appearance normal, both eyes and all related structures Neck Neck:?normal visual inspection and no lymphadenopathy noted Resp Effort & Inspection:?normal respiratory effort Auscultation:?clear to auscultation bilaterally Cardio Rate:?regular rate Rhythm:?regular rhythm GI Abdomen is soft, nondistended, tender to palpation in the right upper quadrant. Neuro General:?patient alert, patient awake and patient oriented x3 Initial Vital Signs Initial Vital Signs: Vital Signs Temperature 98.4 F 06/22/25 11:10 Pulse Rate 69 06/22/25 11:10 Respiratory Rate 18 06/22/25 11:10 Blood Pressure 118/83 06/22/25 11:10 Pulse Oximetry 98 06/22/25 11:10 Oxygen Delivery Method Room Air 06/22/25 11:10 <Jordyn Anthony DO - Last Filed: 06/23/25 10:01> Initial Vital Signs Initial Vital Signs: Vital Signs Temperature 98.4 F 06/22/25 11:10 Pulse Rate 69 06/22/25 11:10 Respiratory Rate 18 06/22/25 11:10 Blood Pressure 118/83 06/22/25 11:10 Pulse Oximetry 98 06/22/25 11:10 Oxygen Delivery Method Room Air 06/22/25 11:10 Course <Sylvia Salas PA-C - Last Filed: 06/22/25 17:34> Orders Ordered: Discontinued Medications Ketorolac Tromethamine (Ketorolac 30 Mg/Ml Vial) 15 mg IV NOW ONE Stop: 06/22/25 11:24 Last Admin: 06/22/25 11:36 Dose: 15 mg Documented By: MARIAM Ketorolac Tromethamine (Ketorolac 30 Mg/Ml Vial) 15 mg IV NOW ONE Stop: 06/22/25 12:40 Last Admin: 06/22/25 12:42 Dose: Not Given Documented By: TAMMI Vital Signs Vital signs: Vital Signs - 8 hr 06/22/25 11:10 06/22/25 14:57 Temperature 98.4 F 98.6 F Pulse Rate 69 69 Respiratory Rate 18 16 Blood Pressure 118/83 132/68 Pulse Oximetry 98 99 Oxygen Delivery Method Room Air Room Air <Jordyn Anthony DO - Last Filed: 06/23/25 10:01> Orders Ordered: Discontinued Medications Ketorolac Tromethamine (Ketorolac 30 Mg/Ml Vial) 15 mg IV NOW ONE Stop: 06/22/25 11:24 Last Admin: 06/22/25 11:36 Dose: 15 mg Documented By: MARIAM Ketorolac Tromethamine (Ketorolac 30 Mg/Ml Vial) 15 mg IV NOW ONE Stop: 06/22/25 12:40 Last Admin: 06/22/25 12:42 Dose: Not Given Documented By: TAMMI Vital Signs Vital signs: Vital Signs - 8 hr 06/22/25 11:10 06/22/25 14:57 Temperature 98.4 F 98.6 F Pulse Rate 69 69 Respiratory Rate 18 16 Blood Pressure 118/83 132/68 Pulse Oximetry 98 99 Oxygen Delivery Method Room Air Room Air MDM - Abdominal Pain <Sylvia Salas PA-C - Last Filed: 06/22/25 17:34> Lab Data 06/22/25 11:35 06/22/25 11:35 Labs: Lab Results 06/22/25 06/22/25 Range/Units 11:35 12:35 WBC 9.2 (4.5-11.0) X10^3/uL RBC 4.76 (4.5-5.9) X10^6/uL Hgb 14.4 (13.5-17.5) g/dL Hct 41.9 (41-53) % MCV 88.1 (80-100) fL MCH 30.3 (26-34) PG MCHC 34.4 (30-36) % RDW 13.0 (11.6-14.8) % Plt Count 201 (150-400) X10^3/uL Neut % (Auto) 66.3 (50-75) % Lymph % (Auto) 22.6 L (25-40) % [place] % (Auto) 8.9 (3-14) % Eos % (Auto) 1.8 L (2-4) % Baso % (Auto) 0.4 (0-2) % Neut # (Auto) 6100 (6486-3850) /uL Lymph # (Auto) 2100 (9381-6815) /uL [place] # (Auto) 800 (0-900) /uL Eos # (Auto) 200 (0-450) /uL Baso # (Auto) 0 (0-100) /uL D-Dimer 218 (<500) ng/ml Sodium 140 (137-145) mmol/L Potassium 4.4 (3.4-5.1) mmol/L Chloride 105 (98-107) mmol/L Carbon Dioxide 24 (22-32) mmol/L BUN 15 (9-20) mg/dL Creatinine 0.96 (0.66-1.25) mg/dL Estimated GFR > 60 (>60) mL/min BUN/Creatinine Ratio 15.6 (6-22) Glucose 103 H (70-99) mg/dL Calcium 9.2 (8.4-10.2) mg/dL Total Bilirubin 0.6 (0.2-1.3) mg/dL AST 27 (17-59) IU/L ALT 24 (<50) IU/L Alkaline Phosphatase 90 (38-126) U/L Total Creatine Kinase 90 (55-170) U/L Troponin I < 0.012 (0.01-0.034) ng/mL NT-Pro-B Natriuret Pep 27 (<125) pg/mL Total Protein 8.2 (6.3-8.2) g/dL Albumin 4.8 (3.5-5.0) g/dL Globulin 3.4 (1.7-4.1) g/dL Albumin/Globulin Ratio 1.4 (1.0-2.8) Lipase 50 (23-300) U/L MDM Narrative Medical decision making narrative: 24-year-old male presents to the ED with 2 days of right upper quadrant/lower chest pain. Concern for cholecystitis versus pneumonia versus PE versus other cardiopulmonary abnormalities versus other. Will obtain labs, lipase,d-dimer, cardiopulmonary workup, ultrasound abdomen. Will give Toradol for pain. Will reassess. Chest x-ray without a acute cardiopulmonary abnormalities or focal consolidation. Ultrasound abdomen without acute sonographic abnormalities. Findings are consistent with mild hepatic steatosis with suspected benign 0.8 cm right hepatic lobe hemangioma. No evidence for cholelithiasis or acute cholecystitis. Abdominal x-ray shows nonobstructive bowel gas pattern. Moderate fecal burden seen throughout the colon. No acute radiographic abnormality seen. EKG is sinus bradycardia with a ventricular rate of 52, sinus arrhythmia. No acute ST-T changes. Labs within normal limits. Troponin, BNP, D-dimer within normal limits. Patient has a completely unremarkable workup here today. Patient's symptoms improved with the Toradol. Patient's symptoms likely musculoskeletal in etiology. Recommend continuing ibuprofen, Tylenol at home. Recommend follow-up with PCP as soon as possible. ED return precautions were discussed with patient. He verbalized understanding. Medical records reviewed: Yes <Jordyn Anthony, - Last Filed: 06/23/25 10:01> Lab Data Labs: Lab Results 06/22/25 06/22/25 Range/Units 11:35 12:35 WBC 9.2 (4.5-11.0) X10^3/uL RBC 4.76 (4.5-5.9) X10^6/uL Hgb 14.4 (13.5-17.5) g/dL Hct 41.9 (41-53) % MCV 88.1 (80-100) fL MCH 30.3 (26-34) PG MCHC 34.4 (30-36) % RDW 13.0 (11.6-14.8) % Plt Count 201 (150-400) X10^3/uL Neut % (Auto) 66.3 (50-75) % Lymph % (Auto) 22.6 L (25-40) % [place] % (Auto) 8.9 (3-14) % Eos % (Auto) 1.8 L (2-4) % Baso % (Auto) 0.4 (0-2) % Neut # (Auto) 6100 (8988-3957) /uL Lymph # (Auto) 2100 (3696-1708) /uL [place] # (Auto) 800 (0-900) /uL Eos # (Auto) 200 (0-450) /uL Baso # (Auto) 0 (0-100) /uL D-Dimer 218 (<500) ng/ml Sodium 140 (137-145) mmol/L Potassium 4.4 (3.4-5.1) mmol/L Chloride 105 (98-107) mmol/L Carbon Dioxide 24 (22-32) mmol/L BUN 15 (9-20) mg/dL Creatinine 0.96 (0.66-1.25) mg/dL Estimated GFR > 60 (>60) mL/min BUN/Creatinine Ratio 15.6 (6-22) Glucose 103 H (70-99) mg/dL Calcium 9.2 (8.4-10.2) mg/dL Total Bilirubin 0.6 (0.2-1.3) mg/dL AST 27 (17-59) IU/L ALT 24 (<50) IU/L Alkaline Phosphatase 90 (38-126) U/L Total Creatine Kinase 90 (55-170) U/L Troponin I < 0.012 (0.01-0.034) ng/mL NT-Pro-B Natriuret Pep 27 (<125) pg/mL Total Protein 8.2 (6.3-8.2) g/dL Albumin 4.8 (3.5-5.0) g/dL Globulin 3.4 (1.7-4.1) g/dL Albumin/Globulin Ratio 1.4 (1.0-2.8) Lipase 50 (23-300) U/L Discharge Plan Departure Patient Disposition: Home Clinical Impression: Abdominal pain Qualifiers: Abdominal location: right upper quadrant Qualified Code(s): R10.11 - Right upper quadrant pain Instructions: DI for Abdominal Pain-Adult Activity Restrictions/Additional Instructions: You were evaluated in the emergency department today for abdominal pain. Your workup was normal today. Your symptoms seem to have improved with Toradol. It appears that your symptoms are likely due to a musculoskeletal pain/strain that is causing your pain. You may continue taking ibuprofen, Tylenol with food at home. Return to the ED if you have worsening symptoms, shortness of breath. Prescriptions: No Action No Known Home Medications oxycodone 5 mg capsule 5 mg PO Q6H PRN (Reason: pain) Qty: 20 0RF oxycodone-acetaminophen [Percocet] 5-325 mg tablet 1 tab PO Q6H PRN (Reason: pain) Qty: 14 0RF Referrals: Jj Mitchell MD [Primary Care Provider, Family Practice] Stand Alone Forms: Patient Portal/API ED Sign-out <Jordyn Anthony DO - Last Filed: 06/23/25 10:01> Cosign ED Attending Keeganature Attestation: I was immediately available in the department for consultation.
[2025-06-22] MEDS: KETOROLAC 30 MG/ML VIAL 15 MG IV (11:36)
[2025-06-22 11:46] LABS: Add Manual Diff / Slide Review NO; Hematocrit 41.9 % (41-53); Hemoglobin 14.4 g/dL (13.5-17.5); Lymphocytes Absolute Auto 2100 /uL (1100-4500); Mean Corpuscular HGB Conc 34.4 % (30-36); Mean Corpuscular Hemoglobin 30.3 PG (26-34); Mean Corpuscular Volume 88.1 fL (80-100); Platelet Count 201 X10^3/uL (150-400)
[2025-06-22 11:59] LABS: Alanine Aminotransferase 24 IU/L (<50); Albumin 4.8 g/dL (3.5-5.0); Albumin Globulin Ratio 1.4 (1.0-2.8); Alkaline Phosphatase 90 U/L (38-126); Blood Urea Nitrogen 15 mg/dL (9-20); Calcium 9.2 mg/dL (8.4-10.2); Carbon Dioxide 24 mmol/L (22-32); Chloride 105 mmol/L (98-107); Estimated Glomerular Filt Rate > 60 mL/min (>60); Globulin 3.4 g/dL (1.7-4.1); Glucose 103 mg/dL (70-99); HEMOLYSIS 15 (0-50); Lipase 50 U/L (23-300); Potassium 4.4 mmol/L (3.4-5.1); Sodium 140 mmol/L (137-145); Total Protein 8.2 g/dL (6.3-8.2)
--- NOTE | 2025-06-22 12:08 | DI.RAD.S_ITS ---
PROCEDURE: XR CHEST 2V INDICATIONS: ruqpain TECHNIQUE: 2 views of the chest were acquired. COMPARISON: None. FINDINGS: Surgical changes and devices: None. Lungs and pleura: Lungs are clear. No pleural effusions or pneumothorax. Mediastinum: Mediastinal contours are normal. Heart size is normal. Bones and chest wall: No suspicious bony abnormalities. Soft tissues appear unremarkable. IMPRESSION: No acute cardiopulmonary abnormalities or focal consolidation. Dictated by: Jared Aguirre M.D. on 06/22/2025 at 12:33 Approved by: Jared Aguirre M.D. on 06/22/2025 at 12:33
--- NOTE | 2025-06-22 12:17 | EKG_ITS ---
[facility] [address] [place] [address] Test Date: 2025-06-22 Pat Name: Keegan Gómez Department: Room: Gender: Male Personnel Records Clerk: : 2000 Requested By: Order Number: [id number] Reading MD: Geovani Nolasco MD Measurements Intervals [place] Rate: 73 P: 71 TN: 166 QRS: -31 QRSD: 100 T: 38 QT: 382 QTc: 420 Interpretive Statements Normal sinus rhythm Left axis deviation RSR' or QR pattern in V1 suggests right ventricular conduction delay Electronically Signed On 06-22-2025 17:15:15 PST by Geovani Nolasco MD
[2025-06-22 12:56] LABS: Creatine Kinase 90 U/L (55-170)
[2025-06-22 13:08] LABS: NT-proBNP (BNP-Adult 18+) 27 pg/mL (<125); Troponin I < 0.012 ng/mL (0.01-0.034)
[2025-06-22 14:57] VITALS: BP 132/68; PULSE 69; RESP 16; TEMP 37; O2SAT 99
== END 2025-06-22 14:58 | disposition home or self-care (01) ==
PROVIDERS: Emergency Provider Student in an Organized Health Care Education/Training Program; Family Provider Family Medicine; PCP Family Medicine
DX: R10.11 Right upper quadrant pain (principal); R07.89 Other chest pain
CPT/HCPCS: 36415; 71046; 74019; 76705; 80053; 82550; 83690; 83880; 84484; 85025; 85379; 93005; 93010; 96374; 96376; 99284; J1885